=== PATIENT | female | born 1985 | race Caucasian/White ===

== ENCOUNTER 2019-07-20 07:11 | Inpatient (IN) | payer BC ==
[~2019-07-20 07:11] MED LIST: Bupivacaine 0.25% 10 ML SDV ONE
[2019-07-20] MEDS ORDERED: Ondansetron 4 MG/2 ML SDV IVPUSH PRN ×2 (07:16→11:01)
[2019-07-20] MEDS ORDERED: Sodium Chloride 0.9% 10 ML Syringe FLUSH PRN (07:16)
[2019-07-20] MEDS ORDERED: Oxytocin/Lactated Ringers 10 UNIT/1,000 ML BAG IV SCH ×2 (07:30)
[2019-07-20] MEDS: Lactated Ringers 1,000 ML IV SCH ×4 (08:14→18:14)
[2019-07-20] MEDS ORDERED: fentaNYL 100 MCG/2 ML SDV EPIDUR PRN (11:01)
[2019-07-20] MEDS ORDERED: ePHEDrine 50 MG/ML SDV IVPUSH PRN (11:01)
--- NOTE | 2019-07-20 11:03 | PCM.PREANE ---
Preanesthetic Assessment - Anesthesia/Transfusion/Family Hx Anesthesia History: Prior Anesthesia Without Reaction Family History of Anesthesia Reaction: No Transfusion History: No Prior Transfusion(s) Intubation History: Unknown - Review of Systems General: No Symptoms Pulmonary: No Symptoms Cardiovascular: No Symptoms, Palpitations (with ) Gastrointestinal: No Symptoms (GERD with ), Nausea Neurological: Headache (migraines) Other: Reports: Sinus Problem (sinus congestion) - Physical Assessment NPO Status Date: 07/20/19 NPO Status Time: 10:30 Vital Signs: Last Vital Signs Temp 37.2 C 07/20/19 07:16 Pulse 81 07/20/19 07:16 Resp 14 07/20/19 07:16 BP 135/95 H 07/20/19 07:16 Pulse Ox 100 07/20/19 07:16 Height: 1.7 m Weight: 75.75 kg ASA Class: 2 Mental Status: Alert & Oriented x3 Airway Class: Mallampati = 2 Dentition: Reports: Normal Dentition, Caries Thyro-Mental Finger Breadths: 3 Mouth Opening Finger Breadths: 3 ROM/Head Extension: Full Lungs: Clear to Auscultation, Normal Respiratory Effort Cardiovascular: Regular Rate, Regular Rhythm, No Murmurs - Lab Values: Laboratory Last Values WBC 7.22 K/mm3 (3.98-10.04) 07/20/19 07:38 RBC 4.70 M/mm3 (3.98-5.22) 07/20/19 07:38 Hgb 13.7 gm/dl (11.2-15.7) 07/20/19 07:38 Hct 41.9 % (34.1-44.9) 07/20/19 07:38 MCV 89.1 fl (79.4-94.8) 07/20/19 07:38 MCH 29.1 pg (25.6-32.2) 07/20/19 07:38 MCHC 32.7 g/dl (32.2-35.5) 07/20/19 07:38 RDW Std Deviation 43.8 fL (36.4-46.3) 07/20/19 07:38 Plt Count 305 K/mm3 (182-369) 07/20/19 07:38 MPV 10.7 fl (9.4-12.3) 07/20/19 07:38 Neut % (Auto) 69.8 % (34.0-71.1) 07/20/19 07:38 Lymph % (Auto) 19.5 % (19.3-51.7) 07/20/19 07:38 [place] % (Auto) 9.7 % (4.7-12.5) 07/20/19 07:38 Eos % (Auto) 0.6 (0.7-5.8) L 07/20/19 07:38 Baso % (Auto) 0.1 % (0.1-1.2) 07/20/19 07:38 Neut # (Auto) 5.04 K/mm3 (1.56-6.13) 07/20/19 07:38 Lymph # (Auto) 1.41 K/mm3 (1.18-3.74) 07/20/19 07:38 [place] # (Auto) 0.70 K/mm3 (0.24-0.36) H 07/20/19 07:38 Eos # (Auto) 0.04 K/mm3 (0.04-0.36) 07/20/19 07:38 Baso # (Auto) 0.01 K/mm3 (0.01-0.08) 07/20/19 07:38 Above labs reviewed and noted and within acceptable ranges to proceed with epidural if desired. - Allergies Allergies/Adverse Reactions: Allergies Allergy/AdvReac Type Severity Reaction Status Date / Time No Known Allergies Allergy Verified 07/20/19 07:20 - Anesthesia Plan Pre-Op Medication Ordered: None - Acknowledgements Anesthesia Type Planned: Epidural Pt an Appropriate Candidate for the Planned Anesthesia: Yes Alternatives and Risks of Anesthesia Discussed w Pt/Guardian: Yes Pt/Guardian Understands and Agrees with Anesthesia Plan: Yes PreAnesthesia Questionnaire - Past Health History Medical/Surgical History: Denies Medical/Surgical History Cardiovascular History: Reports: Other (See Below) Other Cardiovascular History: heart palpitations with Genitourinary History: Reports: STD Neurological History: Reports: Migraines - Infectious Disease History Infectious Disease History: Reports: MRSA - Past Surgical History Female Surgical History: Reports: Breast Biopsy, Other (See Below) Other Female Surgeries/Procedures: 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; HSIL on pap, HPV - SUBSTANCE USE Smoking Status *Q: Never Smoker Recreational Drug Use History: No - HOME MEDS Home Medications: Home Meds Pnv,Calcium 72/Iron/Folic Acid [ Plus Tablet] 1 tab PO DAILY 05/26/19 [ History] [place]-3/DHA/Epa/Fish Oil [[place] 3 500 Softgel] 07/20/19 [History] Ondansetron [Zofran ODT] 4 mg PO Q6H PRN 07/20/19 [History] - CURRENT (IN HOUSE) MEDS Current Meds: Current Medications Lactated Ringer's (Ringers, Lactated) 1,000 mls @ 100 mls/hr IV ASDIRECTED LALY Last Admin: 07/20/19 08:14 Dose: 100 mls/hr Oxytocin/Lactated Ringer's (Pitocin In Lr 10 Units/1,000 Ml) 10 unit in 1,000 mls @ 500 mls/hr IV .CONTINUOUS LALY Oxytocin/Lactated Ringer's (Pitocin In Lr 10 Units/1,000 Ml) 10 unit in 1,000 mls @ 12 mls/hr IV TITRATE LALY; Protocol Last Titration: 07/20/19 10:55 Dose: 8 munits/min, 48 mls/hr Ondansetron HCl (Zofran) 4 mg IVPUSH Q4H PRN PRN Reason: Nausea/Vomiting Sodium Chloride (Saline Flush) 10 ml FLUSH ASDIRECTED PRN PRN Reason: Keep Vein Open
[2019-07-20] MEDS ORDERED: Oxymetazoline 0.05% Nasal Spray 30 ML Bottle NAS PRN (12:23)
[2019-07-20] MEDS: Bupivacaine/fentaNYL/NS 100 ML Bag EPIDUR SCH ×2 (13:26→18:48)
[2019-07-20] MEDS ORDERED: Acetaminophen 325 MG Tab PO ONE (16:34)
[2019-07-20] MEDS ORDERED: Benzocaine/Menthol 20%-0.5% Spray 56 GM Canister TOP PRN (21:03)
[2019-07-20] MEDS ORDERED: SUMAtriptan 50 MG Tab PO PRN (21:03)
[2019-07-20] MEDS ORDERED: Docusate Sodium 100 MG Cap PO PRN (21:03)
[2019-07-20] MEDS ORDERED: Acetaminophen 325 MG Tab PO PRN (21:03)
[2019-07-20] MEDS ORDERED: Witch Hazel Medicated Pads 40/Jar TOP PRN (21:03)
--- NOTE | 2019-07-20 21:11 | PCM.LDHP ---
L&D History of Present Illness - General Date of Service: 07/20/19 Admit Problem/Dx: Patient Status Order with Admit Dx/Problem 07/20/19 07:16 Patient Status [ADT] Routine Admission Diagnosis/Problem Admission Diagnosis/Problem 07/20/19 21:01 Gunjan is a 34-year-old 1 para 0 white female admitted on 07/20/2019 at 39 and 67 weeks gestational age with an SABI of 07/21/2019 for elective induction of labor. The procedure, risks, benefits, limitations and follow-up were discussed in detail with patient. She appears to understand, wishes to proceed. Source of Information: Patient History Limitations: Reports: No Limitations - History of Present Illness Introduction:: Gunjan is a 34-year-old 1 para 0 white female admitted on 07/20/2019 at 39 and 67 weeks gestational age with an SABI of 07/21/2019 for elective induction of labor. The procedure, risks, benefits, limitations and follow-up were discussed in detail with patient. She appears to understand, wishes to proceed. 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 The patient's course is been relatively unremarkable. She is group B strep negative. She has had a history of bacterial vaginosis which was treated. She had bleeding in early . She plans to breast-feed. She has history of WILFREDO- 2. Last SR palpitations in the course of . She has high-grade squamous intraepithelial lesion on Pap smear. She is Rh-. Her immunizations flu shot on 03/09/2019 end diphtheria, pertussis, tetanus immunization on 05/25/2019. She is rubella immune. course started on 12/18/2018 in clinic at that time she was seen, ultrasound was done and dates were set. Her weight gain during the course of is been 147.4 up to 172 for 25 pound increase. Her vital signs were stable throughout the course. She was seen on a regular basis. Fundal height growth was appropriate. Laboratory testing and : At first visit her blood was A- with a negative antibody screen. Hemoglobin was 14.4 g/dL and platelets of 345,000. She is rubella immune. RPR is nonreactive. Hepatitis B surface antigen and HIV assays were both negative. Chlamydia and gonorrhea tests were both negative. TSH 04/06/2019 was normal at 1.102 mU/L. Second trimester labs showed a hemoglobin of 12.0 g/dL and platelets at 290,000. One-hour GTT is mildly elevated at 137. History of glucose tolerance test was within normal sets follows: Fasting blood sugar 82, 1 hour glucose 131, 2 hour glucose 101, 3 are 106. Her latest hemoglobin on 06/04/2019 was 13.1 g/dL and platelets are 320 at that time. Her group B strep was negative. Allergies: None Medications: 1. [place]-3500 mg oral capsules daily 2. Folic acid 1 mg oral tablet daily 3. vitamins daily Past medical history: 1. 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 2. Primary infertility Past surgical history: 1. Breast biopsy 2000 Family history: Father has a history of heart disease and neurological issues. Mother is secondary to drug overdose but had cervical cancer also. One brother is alive and well. Half sisters alive and well. One sister with autism. Maternal grandmother secondary to Alzheimer's disease. Maternal grandfather secondary to heart disease. Paternal grandmother secondary Alzheimer's. Paternal grandfather alive with some eye problems. One nephew with Down syndrome and one nephew and second cousin with autism. No anesthesia, , bleeding, blood clotting or asthma or anesthesia problems noted in the family. Social history: Patient is single. She lives in [place] in the [facility]. 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 She does not use any CF most alcohol, drugs or tobacco. Review of systems: In general patient has no complaints. Baby has been active. Skin: Negative Lungs: No infectious symptoms or shortness of breath Cardiovascular: No chest pain or exercise intolerance Breasts: Changes associated with .. GI: Negative : changes Musculoskeletal: Negative Neurological: Negative In general the patient is well-developed, well-nourished, pleasant female of stated age in no acute distress. On evaluation on 07/13/2019 patient is weight was 172, blood pressure 132/76. Pregravid weight was 147.4 and height was 5 feet 7 inches. Prepregnancy body mass index is 23. Her heart rate on that lasts to clinic today was 177 bpm. Skin is warm dry without lesions. HEENT, neck and back within normal limits. Lungs are clear with good breath sounds in all lung burgess. Cardiovascular exam shows regular and rhythm without murmurs. Breasts exam deferred as was done at first visit on to be normal. Abdomen is gravid with with last fundal height clinic at 37 cm baby in vertex presentation Genital exam per bimanual shows cervix to be 1-2 cm possibly as 80-90% effaced, soft, midposition, and is down. No evidence of rupture membranes at this time.. Extremities and neurological exam are grossly within normal limits. Pain Score: 8 - Related Data Allergies/Adverse Reactions: Allergies Allergy/AdvReac Type Severity Reaction Status Date / Time No Known Allergies Allergy Verified 07/20/19 07:20 Home Medications: Home Meds Pnv,Calcium 72/Iron/Folic Acid [ Plus Tablet] 1 tab PO DAILY 05/26/19 [ History] [place]-3/DHA/Epa/Fish Oil [[place] 3 500 Softgel] 07/20/19 [History] Ondansetron [Zofran ODT] 4 mg PO Q6H PRN 07/20/19 [History] Past Medical History - Past Health History Medical/Surgical History: Denies Medical/Surgical History Cardiovascular History: Reports: Other (See Below) Other Cardiovascular History: heart palpitations with Genitourinary History: Reports: STD Neurological History: Reports: Migraines - Infectious Disease History Infectious Disease History: Reports: MRSA - Past Surgical History Female Surgical History: Reports: Breast Biopsy, Other (See Below) Other Female Surgeries/Procedures: 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2-15.7) gm/dl Hct 41.9 (34.1-44.9) % MCV 89.1 (79.4-94.8) fl MCH 29.1 (25.6-32.2) pg MCHC 32.7 (32.2-35.5) g/dl RDW Std Deviation 43.8 (36.4-46.3) fL Plt Count 305 (182-369) K/mm3 MPV 10.7 (9.4-12.3) fl Neut % (Auto) 69.8 (34.0-71.1) % Lymph % (Auto) 19.5 (19.3-51.7) % [place] % (Auto) 9.7 (4.7-12.5) % Eos % (Auto) 0.6 L (0.7-5.8) Baso % (Auto) 0.1 (0.1-1.2) % Neut # (Auto) 5.04 (1.56-6.13) K/mm3 Lymph # (Auto) 1.41 (1.18-3.74) K/mm3 [place] # (Auto) 0.70 H (0.24-0.36) K/mm3 Eos # (Auto) 0.04 (0.04-0.36) K/mm3 Baso # (Auto) 0.01 (0.01-0.08) K/mm3 Result Diagrams: 07/20/19 07:38 Problem List Initiated/Reviewed/Updated: Yes Orders Last 24hrs: Active Orders 24 hr Category Date Time Status Patient Status Manage Transfer [TRANSFER] Routine ADT 07/20/19 20:57 Ordered Patient Status [ADT] Routine ADT 07/20/19 07:16 Active Activity as Tolerated [RC] PFP Care 07/20/19 07:16 Active Communication Order [RC] ASDIRECTED Care 07/20/19 07:16 Active Heart Tones [RC] ASDIRECTED Care 07/20/19 07:16 Active Non Stress Test [RC] PER UNIT ROUTINE Care 07/20/19 07:16 Active Notify Provider [RC] ASDIRECTED Care 07/20/19 11:01 Active Notify Provider [RC] PFP Care 07/20/19 07:16 Active Notify Provider [RC] PRN Care 07/20/19 07:16 Active Oxygen Therapy [RC] ASDIRECTED Care 07/20/19 11:01 Active Peripheral IV Care [RC] . DIRECTED Care 07/20/19 07:16 Active Pulse Oximetry [RC] ASDIRECTED Care 07/20/19 11:01 Active Vital Signs [RC] PER UNIT ROUTINE Care 07/20/19 07:16 Active Regular Diet [DIET] Diet 07/20/19 Breakfast Active RAPID PLASMA REAGIN,RPR [CHEM] Routine Lab 07/20/19 07:38 Received Bupivacaine/fentaNYL/NS [fentaNYL/Bupivacaine/NS 2 MCG- Med 07/20/19 11:15 Active 0.125% 100 ML] 100 ml EPIDUR ASDIRECTED Lactated Ringers [Ringers, Lactated] 1,000 ml Med 07/20/19 07:30 Active IV ASDIRECTED Ondansetron [Zofran] Med 07/20/19 11:01 Active 4 mg IVPUSH ONETIME PRN Ondansetron [Zofran] Med 07/20/19 07:16 Active 4 mg IVPUSH Q4H PRN Oxymetazoline [Nasal Decongestant [place]] Med 07/20/19 12:23 Active 0 ml JESSIE BID PRN Oxytocin/Lactated Ringers [Pitocin in LR 10 Units/1,000 Med 07/20/19 07:30 Active ML] 10 unit in 1,000 ml IV .CONTINUOUS Oxytocin/Lactated Ringers [Pitocin in LR 10 Units/1,000 Med 07/20/19 07:30 Active ML] 10 unit in 1,000 ml IV TITRATE Sodium Chloride 0.9% [Saline Flush] Med 07/20/19 07:16 Active 10 ml FLUSH ASDIRECTED PRN ePHEDrine [ePHEDrine sulfate] Med 07/20/19 11:01 Active 5 mg IVPUSH ASDIRECTED PRN fentaNYL [Sublimaze] Med 07/20/19 11:01 Active 100 mcg EPIDUR Q3H PRN Electronic Heart Tones Ext w TOCO [WOMSER] Oth 07/20/19 07:16 Ordered Routine Electronic Heart Tones Internal [WOMSER] Per Unit Oth 07/20/19 07:16 Ordered Routine Peripheral IV Insertion Adult [OM.PC] Routine Oth 07/20/19 07:16 Ordered Resuscitation Status Routine Resus Stat 07/20/19 07:16 Ordered Medication Orders Ephedrine Sulfate (Ephedrine Sulfate) 5 mg IVPUSH ASDIRECTED PRN PRN Reason: Hypotension Fentanyl (Sublimaze) 100 mcg EPIDUR Q3H PRN PRN Reason: Pain Last Admin: 07/20/19 13:26 Dose: 100 mcg Fentanyl/Bupivacaine HCl (Fentanyl/Bupivacaine/Ns 2 Mcg-0.125% 100 Ml) 100 ml EPIDUR ASDIRECTED LALY Last Admin: 07/20/19 18:48 Dose: 100 ml Admin: 07/20/19 13:26 Dose: 100 ml Lactated Ringer's (Ringers, Lactated) 1,000 mls @ 100 mls/hr IV ASDIRECTED LALY Last Admin: 07/20/19 18:14 Dose: 100 mls/hr Infusion: 07/20/19 18:14 Dose: 100 mls/hr Admin: 07/20/19 13:49 Dose: 100 mls/hr Infusion: 07/20/19 13:49 Dose: 100 mls/hr Admin: 07/20/19 12:51 Dose: 100 mls/hr Infusion: 07/20/19 12:51 Dose: 100 mls/hr Admin: 07/20/19 08:14 Dose: 100 mls/hr Oxytocin/Lactated Ringer's (Pitocin In Lr 10 Units/1,000 Ml) 10 unit in 1,000 mls @ 500 mls/hr IV .CONTINUOUS LALY Oxytocin/Lactated Ringer's (Pitocin In Lr 10 Units/1,000 Ml) 10 unit in 1,000 mls @ 12 mls/hr IV TITRATE ALLY; Protocol Last Titration: 07/20/19 15:12 Dose: 10 munits/min, 60 mls/hr Titration: 07/20/19 13:05 Dose: 9 munits/min, 54 mls/hr Titration: 07/20/19 10:55 Dose: 8 munits/min, 48 mls/hr Titration: 07/20/19 10:11 Dose: 6 munits/min, 36 mls/hr Titration: 07/20/19 09:04 Dose: 4 munits/min, 24 mls/hr Admin: 07/20/19 08:14 Dose: 2 munits/min, 12 mls/hr Ondansetron HCl (Zofran) 4 mg IVPUSH Q4H PRN PRN Reason: Nausea/Vomiting Ondansetron HCl (Zofran) 4 mg IVPUSH ONETIME PRN PRN Reason: Nausea/Vomiting Oxymetazoline HCl (Nasal Decongestant [place]) 0 ml JESSIE BID PRN PRN Reason: nasal congestion Last Admin: 07/20/19 16:53 Dose: 1 spray Sodium Chloride (Saline Flush) 10 ml FLUSH ASDIRECTED PRN PRN Reason: Keep Vein Open Assessment/Plan Comment:: 1. 39-6/7 week intrauterine , elective induction of labor. 2. Group B strep screen negative 3. Patient plans to breast-feed 4. Patient is up-to-date regarding her flu immunization and her diphtheria, pertussis, tet position. She is rubella immune. 5. She desires epidural in labor. 6. CBC and RPR upon admission per protocol 7. Anticipate .
[2019-07-20] MEDS ORDERED: Ondansetron 4 MG/2 ML SDV ONE (21:13)
--- NOTE | 2019-07-20 21:22 | PCM.SN ---
- Free Text/Narrative Note: Delivery note: Gunjan is a 34-year-old 1 now para 1001 white female admitted on 2019 at 39 and 6/7 weeks gestational age with an SABI of 07/21/2019 for elective induction of labor. Procedure risks, benefits discussed in detail with patient. She appeared to understand and wished to proceed. Pitocin was started initially and after patient accomplished 3-4 centimeter cervical dilation, artificial rupture membranes was then performed with resultant clear amniotic fluid. Patient had an epidural for labor analgesia. She progressed steadily to complete cervical dilation by about 1930 hrs. on 07/20/2019. She pushed and 2-1/2 hours. At that time 2014 hrs. on 07/20/2019 she delivered a viable, hernandez, female infant with Apgars of 8 and 9, a weight of, a length of, in the direct occiput anterior position. It was a single, loose nuchal cord 1 which was reduced over the baby's head. The baby was placed on mom's abdomen and bulb suctioned. Pitocin was increased to 500 mL an hour to facilitate increase in uterine tone and decreased likelihood of bleeding. The umbilical cord was allowed to pulsate 2-3 minutes and was cut and cord bloods obtained. The umbilical cord had 3 vessels. She sustained a second-degree perineal laceration which was repaired with 3-0 Monocryl using the epidural for anesthesia. The placenta delivered in a Munoz presentation at 20 127 hours, appeared intact and complete and was discarded per patient desire. Blood loss was 100 mL. Patient plans to breast-feed. Condition: Good
[2019-07-20] MEDS: Ibuprofen 600 MG Tab PO PRN (23:02)
[2019-07-21] MEDS: Ibuprofen 600 MG Tab PO PRN ×3 (06:48→18:13)
--- NOTE | 2019-07-21 08:21 | PCM48HPAN ---
Post Anesthesia Note - EVALUATION WITHIN 48HRS OF ANESTHETIC Vital Signs in Normal Range: Yes Patient Participated in Evaluation: Yes Respiratory Function Stable: Yes Airway Patent: Yes Cardiovascular Function Stable: Yes Hydration Status Stable: Yes Pain Control Satisfactory: Yes Nausea and Vomiting Control Satisfactory: Yes Mental Status Recovered: Yes Vital Signs: Last Vital Signs Temp 36.7 C 07/21/19 04:15 Pulse 60 07/21/19 04:15 Resp 15 07/21/19 04:15 BP 118/69 07/21/19 04:15 Pulse Ox 98 07/21/19 04:15 - COMMENTS/OBSERVATIONS Free Text/Narrative:: no anesthesia complications noted
[2019-07-22] MEDS: Ibuprofen 600 MG Tab PO PRN (03:31)
--- NOTE | 2019-07-22 07:15 | PCM.SN ---
- Free Text/Narrative Note: note placed retroactively for 07/21/2019 note: Patient is doing well in the period. Minimal lochia, voiding well, ambulated without problems. Nursing without concerns. Patient is afebrile, vital signs are stable Abdomen is flat, soft, uterus is below the umbilicus and is firm and nontender. Legs are nontender. Assessment: recovery going well. Plan: Routine care. Patient be discharged home within the next 24- 48 hours.
--- NOTE | 2019-07-22 07:18 | PCM.DCSUM1 ---
Discharge Summary - Hospital Course Free Text/Narrative:: Gunjan is a 34-year-old 1 now para 1001 white female admitted on 2019 at 39 and 6/7 weeks gestational age with an SABI of 07/21/2019 for elective induction of labor. Procedure risks, benefits discussed in detail with patient. She appeared to understand and wished to proceed. Pitocin was started initially and after patient accomplished 3-4 centimeter cervical dilation, artificial rupture membranes was then performed with resultant clear amniotic fluid. Patient had an epidural for labor analgesia. She progressed steadily to complete cervical dilation by about 1930 hrs. on 07/20/2019. She pushed and 2-1/2 hours. At that time 2014 hrs. on 07/20/2019 she delivered a viable, hernandez, female with Apgars of 8 and 9, a weight of, a length of, in the direct occiput anterior position. It was a single, loose nuchal cord 1 which was reduced over the baby's head. The baby was placed on mom's abdomen and bulb suctioned. Pitocin was increased to 500 mL an hour to facilitate increase in uterine tone and decreased likelihood of bleeding. The umbilical cord was allowed to pulsate 2-3 minutes and was cut and cord bloods obtained. The umbilical cord had 3 vessels. She sustained a second-degree perineal laceration which was repaired with 3-0 Monocryl using the epidural for anesthesia. The placenta delivered in a Munoz presentation at 20 127 hours, appeared intact and complete and was discarded per patient desire. Blood loss was 100 mL. Patient plans to breast-feed. Patient is very well. She is nursing without significant problems, has minimal lochia, is voiding well and ambulating without concerns. She is desiring discharge home. Condition: Good Diagnosis: Stroke: No - Discharge Data Discharge Date: 07/22/19 Discharge Disposition: Home, Self-Care 01 Condition: Good - Referral to Home Health Primary Care Physician: Donta Patricia MD - Patient Instructions Diet: Regular Diet as Tolerated (Nursing diet with increase calories and calcium as recommended) Activity: As Tolerated (No intercourse or tampons until bleeding resolves.) Driving: May Drive Today Showering/Bathing: May Shower (May take a bath) Notify Provider of: Fever, Increased Pain, Swelling and Redness, Nausea and/or Vomiting - Discharge Plan Home Medications: Home Meds Pnv,Calcium 72/Iron/Folic Acid [ Plus Tablet] 1 tab PO DAILY 05/26/19 [ History] Sayre-3/DHA/Epa/Fish Oil [Sayre 3 500 Softgel] 07/20/19 [History] Acetaminophen [Tylenol] 650 mg PO Q4H PRN tablet 07/22/19 [Rx] Ibuprofen [Motrin] 600 mg PO Q4H PRN tablet 07/22/19 [Rx] Referrals: Donta Patricia MD [Primary Care Provider] - (Return to [facility] for Susie tejada nurse practitioner, 2 weeks.) - Discharge Summary/Plan Comment DC Time >30 min.: No Discharge Summary/Plan Comment: Discharge instructions: 1. Discharge home 2. Diet, activity and follow-up discussed with patient. Recommend nursing diet with increased calories and calcium. 3. Precautions given concern increased pain, bleeding, temperature, signs/ symptoms of DVT/PE. 4. Medications per home medication was printed, discussed with and given to the patient. 5. Return to clinic-Dr. Patricia or Susie tejada, nurse practitioner, at [facility] in 2 weeks. Diagnosis: Term -delivered Condition: Good - Patient Data Vitals - Most Recent: Last Vital Signs Temp 36.4 C 07/22/19 03:34 Pulse 68 07/22/19 03:34 Resp 18 07/22/19 03:34 BP 139/110 H 07/22/19 03:34 Pulse Ox 96 07/22/19 03:34 Weight - Most Recent: 75.75 kg Lab Results - Last 24 hrs: Laboratory Results - last 24 hr 07/21/19 Range/Units 05:15 Blood Type A NEGATIVE Gel Antibody Screen Negative Screen 0 ros/5 flds - neg RhIG Candidate? Yes Rhogam Indicated Yes, baby rh pos H Med Orders - Current: Current Medications Acetaminophen (Tylenol) 650 mg PO Q4H PRN PRN Reason: mild pain or fever Last Admin: 07/22/19 06:26 Dose: 650 mg Benzocaine/Menthol (Dermoplast Pain Relief [place]) 0 gm TOP ASDIRECTED PRN PRN Reason: Perineal Comfort Measure Last Admin: 07/20/19 21:59 Dose: 1 can Docusate Sodium (Colace) 100 mg PO BID PRN PRN Reason: Constipation Ibuprofen (Motrin) 600 mg PO Q4H PRN PRN Reason: Mild pain or fever Last Admin: 07/22/19 03:31 Dose: 600 mg Sumatriptan Succinate (Imitrex) 50 mg PO Q2H PRN PRN Reason: Headache/Pain Last Admin: 07/20/19 21:42 Dose: 50 mg Witch Marta (Tucks) 1 pad TOP ASDIRECTED PRN PRN Reason: Pain Last Admin: 07/20/19 22:00 Dose: 1 tub Discontinued Medications Acetaminophen (Tylenol) 650 mg PO NOW ONE Stop: 07/20/19 16:35 Last Admin: 07/20/19 16:52 Dose: 650 mg Bupivacaine HCl (Sensorcaine-Mpf 0.25%) 10 ml .ROUTE .STK-MED ONE Stop: 07/20/19 00:01 Ephedrine Sulfate (Ephedrine Sulfate) 5 mg IVPUSH ASDIRECTED PRN PRN Reason: Hypotension Fentanyl (Sublimaze) 100 mcg EPIDUR Q3H PRN PRN Reason: Pain Last Admin: 07/20/19 13:26 Dose: 100 mcg Fentanyl/Bupivacaine HCl (Fentanyl/Bupivacaine/Ns 2 Mcg-0.125% 100 Ml) 100 ml EPIDUR ASDIRECTED LALY Last Admin: 07/20/19 18:48 Dose: 100 ml Lactated Ringer's (Ringers, Lactated) 1,000 mls @ 100 mls/hr IV ASDIRECTED LALY Last Admin: 07/20/19 18:14 Dose: 100 mls/hr Oxytocin/Lactated Ringer's (Pitocin In Lr 10 Units/1,000 Ml) 10 unit in 1,000 mls @ 500 mls/hr IV .CONTINUOUS LALY Last Admin: 07/20/19 21:23 Dose: 500 mls/hr Oxytocin/Lactated Ringer's (Pitocin In Lr 10 Units/1,000 Ml) 10 unit in 1,000 mls @ 12 mls/hr IV TITRATE LALY; Protocol Last Titration: 07/20/19 15:12 Dose: 10 munits/min, 60 mls/hr Ondansetron HCl (Zofran) 4 mg IVPUSH Q4H PRN PRN Reason: Nausea/Vomiting Last Admin: 07/20/19 21:16 Dose: 4 mg Ondansetron HCl (Zofran) 4 mg IVPUSH ONETIME PRN PRN Reason: Nausea/Vomiting Ondansetron HCl (Zofran) Confirm Administered Dose 4 mg .ROUTE .[facility]-MED ONE Stop: 07/20/19 21:14 Last Admin: 07/21/19 07:04 Dose: Not Given Oxymetazoline HCl (Nasal Decongestant [place]) 0 ml JESSIE BID PRN PRN Reason: nasal congestion Last Admin: 07/20/19 16:53 Dose: 1 spray Sodium Chloride (Saline Flush) 10 ml FLUSH ASDIRECTED PRN PRN Reason: Keep Vein Open
[2019-07-22 09:26] VITALS: BP 127/84; PULSE 69
== END 2019-07-22 10:15 | disposition home or self-care (01) | DRG 560 ==
LOC: JD.OB 07:11 → OBSVTOIN 18:14 → JD.OB 18:14
PROVIDERS: ADMIT Obstetrics & Gynecology; ATTEND Obstetrics & Gynecology
PROC: 3E033VJ Introduction of Other Hormone into Peripheral Vein, Percutaneous Approach (ICD-10-PCS; principal; 2019-07-20)
PROC: 10E0XZZ Delivery of Products of Conception, External Approach (ICD-10-PCS; principal; 2019-07-20)
PROC: 0KQM0ZZ Repair Perineum Muscle, Open Approach (ICD-10-PCS; principal; 2019-07-20)
PROC: 10907ZC Drainage of Amniotic Fluid, Therapeutic from Products of Conception, Via Natural or Artificial Opening (ICD-10-PCS; 2019-07-20)
PROC: 3E0R3BZ Introduction of Anesthetic Agent into Spinal Canal, Percutaneous Approach (ICD-10-PCS; 2019-07-20)
PROC: 00HU33Z Insertion of Infusion Device into Spinal Canal, Percutaneous Approach (ICD-10-PCS; 2019-07-20)
DX: O69.81X0 Labor and delivery complicated by cord around neck, without compression, not applicable or unspecified (principal); O70.1 Second degree perineal laceration during delivery; Z3A.39 39 weeks gestation of pregnancy; Z37.0 Single live birth; Z79.899 Other long term (current) drug therapy; Z98.890 Other specified postprocedural states
CPT/HCPCS: 36415; 51702; 59025; 59409; 85025; 85461; 86592; 86850; 86900; 86901; A9270-GY; J2405; J2590; J2790; J3010; J3490; J7120